=== PATIENT | female | born 1960 | race Caucasian/White ===

== ENCOUNTER 2019-03-02 06:40 | Emergency (ER) | payer OTHER ==
--- OUTSIDE RECORDS SUMMARY | 2019-03-02 06:43 | XMS REPORT ---
:1960 [facility] Address [address] [place] [address] Dr. Vera. [address] [place] [id number] Care Team Providers Name Role Phone Unavailable Unavailable Unavailable Problems This patient has no known problems. Allergies, Adverse Reactions, Alerts This patient has no known allergies or adverse reactions. Medications This patient has no known medications.
[2019-03-02] MEDS ORDERED: FENTANYL CITR 100 MCG/2 ML ONE (07:14)
[2019-03-02 07:37] LABS: Absolute Lymphocytes (CBC) 3.5 K/uL (0.7-4.9); Basophils % 0.4 % (0-1.3); Hematocrit 34.7 % (36.0-45.0); Lymphocytes % 30.9 % (15.3-44.8); MPV 8.6 fL (7.6-11.3); RBC Red Blood Cell Count 3.87 M/uL (3.86-4.86)
[2019-03-02 07:40] LABS: Protime INR 0.98
[2019-03-02 07:56] LABS: ALT/SGPT 50 U/L (12-78); AST/SGOT 55 U/L (15-37); Albumin 3.3 g/dL (3.4-5.0); Alkaline Phosphatase 222 U/L (45-117); BUN Blood Urea Nitrogen 22 mg/dL (7-18); Bicarbonate 24 mmol/L (21-32); Bilirubin Direct 0.2 mg/dL (0-0.2); Bilirubin Total 0.4 mg/dL (0.2-1.0); Glucose Level 102 mg/dL (74-106); Lipase 235 U/L (73-393); Magnesium 1.9 mg/dL (1.8-2.4); NT PRO-BNP 266 pg/mL (<125); Potassium 3.9 mmol/L (3.5-5.1); Protein, Total 7.3 g/dL (6.4-8.2); Sodium Level 141 mmol/L (136-145); Troponin (Emerg Dept Use Only) < 0.02 ng/mL (0.0-0.045)
[2019-03-02] MEDS ORDERED: NA CHLORIDE 0.9% 1,000 ML ONE (08:20)
--- NOTE | 2019-03-02 08:22 | RAD REPORT ---
EXAM DESCRIPTION: RAD - Chest Single View - 03/02/2019 7:23 am CLINICAL HISTORY: Chest pain, history of recent lithotripsy COMPARISON: February 23 TECHNIQUE: AP portable chest image was obtained 0718 hours . FINDINGS: Lungs are clear. Heart and vasculature are normal. No measurable pleural effusion and no p neumothorax. No acute bony abnormality seen. No acute aortic findings suspected. IMPRESSION: No acute cardiopulmonary process. No significant change from comparison.
--- NOTE | 2019-03-02 08:53 | RAD REPORT ---
EXAM DESCRIPTION: CT - Chest For Pe Angio - 03/02/2019 8:43 am CLINICAL HISTORY: CHEST PAIN COMPARISON: Chest Single View dated 03/02/2019 TECHNIQUE: Dynamically enhanced 3 mm thick images of the chest were obtained during administration o f approximately 150mL Isovue 370 IV contrast. Coronal and oblique MIP reconstruction images were gene rated and reviewed. Exam utilizes a protocol to evaluate the pulmonary arterial tree. All CT scans are performed using dose optimization technique as appropriate and may include automated exposure control or mA/KV adjustment according to patient size. FINDINGS: No pulmonary emboli are identified. The aorta as imaged shows no acute or suspicious finding. No pericardial thickening or effusion. Geovanna ent has a normal aortic arch variant a right subclavian artery arising from the aortic arch and passi ng posterior to the esophagus. No infiltrate or mass in the lung parenchyma. No pleural effusion or pleural thickening. No mediastinal or hilar suspicious masses. No chest wall masses or abnormal axillary lymphadenopathy. IMPRESSION: No pulmonary emboli identified. No other significant or suspicious findings.
--- NOTE | 2019-03-02 09:02 | RAD REPORT ---
EXAM DESCRIPTION: CT - Abdomen Pelvis W Contrast - 03/02/2019 8:42 am CLINICAL HISTORY: Abdominal pain;Chest pain, epigastric pain with February 28 right kidney stone lit hotripsy. Patient has prior cholecystectomy and hysterectomy COMPARISON: None. TECHNIQUE: Biphasic, helical CT imaging of the abdomen and pelvis was performed following 100 ml non -ionic IV contrast. Oral contrast was given. All CT scans are performed using dose optimization technique as appropriate and may include automated exposure control or mA/KV adjustment according to patient size. FINDINGS: No suspicious findings in the lung bases. The liver, spleen, and pancreas show no focal findings. Liver does show a subtle nodular capsule cont our. Gallbladder is absent. No abnormal biliary tree dilatation. Patient has [id number] right-sided hydronephrosis and hydroureter secondary to a 4 millimeter d istal ureteral stone. Stone is approximately 4 cm from the UVJ. There are several small stone fragmen ts in the lower pole of the right kidney. This is the site of lithotripsy of an approximately 7 x 7 m illimeter calculus. The hydronephrosis and obstructing calculus does not appear to cause any signific ant degree of asymmetry of function. There is no retroperitoneal hematoma. No pyelonephritis or acute parenchymal process. No bladder abnormalities. No adrenal abnormalities. No dilated bowel loops or bowel wall thickening. Moderate stool volume throughout the colon. No acute GI process identifiable. No free air, free fluid or inflammatory stranding. No mass or bulky lympha denopathy. A very minimal periumbilical fatty hernia present. No suspicious bony findings. Patient has prominent degenerative change in the lumbar spine. L4 pars defects are present with mild anterior subluxation of L4. Patient has advanced L4-5 disc and endplate degenerative change. Bilateral foraminal stenosis is present. Wedging of the T11 thoracic vertebrae noted. This is not suspected to be acute. IMPRESSION: The patient has mild to moderate right-sided hydronephrosis secondary to a 4 millimeter stone fragment in the distal ureter 3-4 cm from the UVJ. Additional stone fragments are present in the lower pole of the right kidney. There is no intraparenchymal or perinephric hematoma. The obstructing calculus does not currently cau se any significant degree asymmetry of function. The liver does show a subtle nodularity to the capsule. No focal liver lesions. The capsule findings nonspecific but can be seen in cirrhosis or diffuse hepatic parenchymal disease. This can be correlat ed with liver function studies as warranted.
--- NOTE | 2019-03-02 10:25 | ER ---
Nurse's Notes [facility] Name: Alison Casillas Age: 58 yrs Sex: Female : 1960 Arrival Date: 03/02/2019 Time: 06:41 Bed 6 Private MD: Diagnosis: Unspecified abdominal pain;Calculus of ureter Presentation: 03/02 06:42 Presenting complaint: EMS states: Patient had lithotripsy on 02/28 for 7mm stone to lp1 right kidney by Dr. Damico; States pain to different areas of body since, this morning, pain to epigastric area this morning with nausea radiating to back. Transition of care: patient was not received from another setting of care. Onset of symptoms was March 02, 2019. Risk Assessment: Do you want to hurt yourself or someone else? Patient reports no desire to harm self or others. Initial Sepsis Screen: Does the patient meet any 2 criteria? No. Patient's initial sepsis screen is negative. Does the patient have a suspected source of infection? No. Patient's initial sepsis screen is negative. Care prior to arrival: None. 06:42 Method Of Arrival: EMS: [facility] 1 06:42 Acuity: VINOD 3 lp1 Historical: - Allergies: 06:48 Cipro; lp1 06:48 tramadol; lp1 06:48 Zithromax; lp1 - Home Meds: 06:48 Pepcid 20 mg Oral tab 1 tab once daily [Active]; amlodipine-benazepril 5-10 mg oral cap lp1 1 cap once daily [Active]; Bystolic 5 mg oral tab once daily [Active]; acetaminophen-codeine 300-30 mg Oral tab 1 tab every 6 hours [Active]; tamsulosin 0.4 mg oral cp24 1 cap once daily [Active]; - PMHx: 06:48 acid reflux; Arthritis; Hypertension; Kidney stones; bleeding ulcers; lp1 - PSHx: 06:48 Cholecystectomy; Hysterectomy; ; Lithotripsy 02/28/19; lp1 - Immunization history:: Adult Immunizations up to date. - Social history:: Smoking status: Patient/guardian denies using tobacco. - Ebola Screening: : No symptoms or risks identified at this time. Screenin:48 Abuse screen: Denies threats or abuse. Denies injuries from another. Nutritional lp1 screening: No deficits noted. Tuberculosis screening: No symptoms or risk factors identified. 07:36 Fall Risk None identified. tw2 Assessment: 07:10 General: Appears in no apparent distress. Behavior is calm, cooperative, appropriate tw2 for age. Pain: Complains of pain in epigastric area. Neuro: Level of Consciousness is awake, alert, obeys commands, Oriented to person, place, time, situation. Cardiovascular: Heart tones S1 S2 Patient's skin is warm and dry. Respiratory: Airway is patent Respiratory effort is even, unlabored, Respiratory pattern is regular, symmetrical, Breath sounds are clear bilaterally. GI: Abdomen is flat, Bowel sounds present X 4 quads. Abd is soft X 4 quads. : Urine is liz blood, Reports blood in urine. EENT: No signs and/or symptoms were reported regarding the EENT system. Derm: No signs and/or symptoms reported regarding the dermatologic system. Musculoskeletal: Range of motion: intact in all extremities. 08:30 Reassessment: Patient appears in no apparent distress at this time. No changes from tw2 previously documented assessment. Patient and/or family updated on plan of care and expected duration. Pain level reassessed. Patient is alert, oriented x 3, equal unlabored respirations, skin warm/dry/pink. 09:40 Reassessment: Patient appears in no apparent distress at this time. No changes from tw2 previously documented assessment. Patient and/or family updated on plan of care and expected duration. Pain level reassessed. Patient is alert, oriented x 3, equal unlabored respirations, skin warm/dry/pink. 10:40 Reassessment: Patient appears in no apparent distress at this time. No changes from tw2 previously documented assessment. Patient and/or family updated on plan of care and expected duration. Pain level reassessed. Patient is alert, oriented x 3, equal unlabored respirations, skin warm/dry/pink. Patient states feeling better. Vital Signs: 06:45 BP 124 / 81; Pulse 70; Resp 18; Temp 97.7(O); Pulse Ox 98% on R/A; Weight 73.48 kg (R); lp1 Height 5 ft. 1 in. (154.94 cm); Pain 3/10; 07:33 BP 129 / 66; Pulse 56; Resp 15; Pulse Ox 99% ; sv 08:30 BP 129 / 68; Pulse 53; Resp 17; Pulse Ox 99% on R/A; tw2 09:29 BP 116 / 70; Pulse 60; Resp 20; Pulse Ox 96% ; sv 06:45 Body Mass Index 30.61 (73.48 kg, 154.94 cm) lp1 ED Course: 06:41 Patient arrived in ED. lp1 06:45 Triage completed. lp1 06:45 Arm band placed on. lp1 06:47 Gigi Coleman NP is PHCP. pm1 06:47 Mulugeta Wright MD is Attending Physician. pm1 06:48 Patient has correct armband on for positive identification. Bed in low position. Pulse lp1 ox on. NIBP on. 07:10 Erin Jacobs RN is Primary Nurse. tw2 07:24 XRAY Chest (1 view) In Process Unspecified. EDMS 07:34 Maintain EMS IV. Dressing intact. Good blood return noted. Site clean \T\ dry. Gauge \T\ tw 2 site: 20 g RIGHT wrist. 08:43 Abdomen In Process Unspecified. EDMS 08:43 CT Chest For PE Angio In Process Unspecified. EDMS 10:40 No provider procedures requiring assistance completed. IV discontinued, intact, tw2 bleeding controlled, No redness/swelling at site. Pressure dressing applied. Administered Medications: 07:17 Drug: fentaNYL (PF) 25 mcg {Note: RASS 0.} Route: IVP; Site: right wrist; tw2 08:12 Follow up: Response: No adverse reaction; Pain is decreased; RASS: Alert and Calm (0) tw2 08:20 Drug: NS 0.9% 1000 ml Route: IV; Rate: 1000 ml; Site: right hand; tw2 10:29 Follow up: Response: No adverse reaction; IV Status: Completed infusion; IV Intake: tw2 1000ml Intake: 10:29 IV: 1000ml; Total: 1000ml. tw2 Outcome: 10:25 Discharge ordered by . pm1 10:40 Discharged to home ambulatory, with family. tw2 10:40 Condition: stable 10:40 Discharge instructions given to patient, family, Instructed on discharge instructions, follow up and referral plans. medication usage, Demonstrated understanding of instructions, follow-up care, medications, Prescriptions given X 1. 10:41 Patient left the ED. tw2 Signatures: Dispatcher [employer] Edie Salmon, RN RN sv Suly Meza, RN RN lp1 Gigi Coleman, FREE LANCE ARTIST FREE LANCE ARTIST pm1 Erin Jacobs RN RN tw2
--- NOTE | 2019-03-02 10:26 | EDPHYS ---
Physician Documentation [facility] Name: Alison Casillas Age: 58 yrs Sex: Female : 1960 Arrival Date: 03/02/2019 Time: 06:41 Bed 6 Private MD: ED Physician Mulugeta Wright HPI: 03/02 07:00 This 58 yrs old Female presents to ER via EMS with complaints of Abdominal pm1 Pain. 07:00 The patient presents with abdominal pain in the epigastric area. Onset: The pm1 symptoms/episode began/occurred this morning, at 03:00. The symptoms radiate to the right shoulder. Associated signs and symptoms: Pertinent positives: nausea, Pertinent negatives: blood in stools, chest pain, constipation, fever, shortness of breath, vomiting blood. The symptoms are described as sharp. Modifying factors: The symptoms are alleviated by nothing, the symptoms are aggravated by nothing. Severity of pain: in the emergency department the pain has improved. The patient has been recently seen by a physician: with different complaint(s), Lithotripsy [address] Damico on a 7 cm right ureteral calculus. Patient concerned about epigastric pain because she when she came out of surgery two days ago with Dr. Damico she had palpitations and tachycardia. They did a cardiac work up and discharged her home to follow up with cardiology . She has had right lower quadrant pain from her kidney stone that is not new today. Has been passing some stones. . 07:00 Patient attributes her current pain likely to her history of peptic ulcers. pm1 Historical: - Allergies: 06:48 Cipro; lp1 06:48 tramadol; lp1 06:48 Zithromax; lp1 - Home Meds: 06:48 Pepcid 20 mg Oral tab 1 tab once daily [Active]; amlodipine-benazepril 5-10 mg oral cap lp1 1 cap once daily [Active]; Bystolic 5 mg oral tab once daily [Active]; acetaminophen-codeine 300-30 mg Oral tab 1 tab every 6 hours [Active]; tamsulosin 0.4 mg oral cp24 1 cap once daily [Active]; - PMHx: 06:48 acid reflux; Arthritis; Hypertension; Kidney stones; bleeding ulcers; lp1 - PSHx: 06:48 Cholecystectomy; Hysterectomy; ; Lithotripsy 11/19/19; lp1 - Immunization history:: Adult Immunizations up to date. - Social history:: Smoking status: Patient/guardian denies using tobacco. - Ebola Screening: : No symptoms or risks identified at this time. ROS: 07:00 Constitutional: Negative for fever, chills, and weight loss, Eyes: Negative for injury, pm1 pain, redness, and discharge, ENT: Negative for injury, pain, and discharge, Neck: Negative for injury, pain, and swelling, Cardiovascular: Negative for chest pain, palpitations, and edema, Respiratory: Negative for shortness of breath, cough, wheezing, and pleuritic chest pain. 07:00 Back: Negative for injury and pain, MS/Extremity: Negative for injury and deformity, Skin: Negative for injury, rash, and discoloration. 07:00 Neuro: Negative for headache, weakness, numbness, tingling, and seizure. 07:00 Abdomen/GI: Positive for abdominal pain, nausea, of the epigastric area and right lower quadrant, Negative for vomiting, diarrhea, constipation. 07:00 : Positive for hematuria, Negative for burning with urination. Exam: 07:00 Constitutional: This is a well developed, well nourished patient who is awake, alert, pm1 and in no acute distress. Head/Face: Normocephalic, atraumatic. Eyes: Pupils equal round and reactive to light, extra-ocular motions intact. Lids and lashes normal. Conjunctiva and sclera are non-icteric and not injected. Cornea within normal limits. Periorbital areas with no swelling, redness, or edema. ENT: Nares patent. No nasal discharge, no septal abnormalities noted. Tympanic membranes are normal and external auditory canals are clear. Oropharynx with no redness, swelling, or masses, exudates, or evidence of obstruction, uvula midline. Mucous membranes moist. Neck: Trachea midline, no thyromegaly or masses palpated, and no cervical lymphadenopathy. Supple, full range of motion without nuchal rigidity, or vertebral point tenderness. No Meningismus. Chest/axilla: Normal chest wall appearance and motion. Nontender with no deformity. No lesions are appreciated. Cardiovascular: Regular rate and rhythm with a normal S1 and S2. No gallops, murmurs, or rubs. Normal PMI, no JVD. No pulse deficits. Respiratory: Lungs have equal breath sounds bilaterally, clear to auscultation and percussion. No rales, rhonchi or wheezes noted. No increased work of breathing, no retractions or nasal flaring. 07:00 Skin: Warm, dry with normal turgor. Normal color with no rashes, no lesions, and no evidence of cellulitis. MS/ Extremity: Pulses equal, no cyanosis. Neurovascular intact. Full, normal range of motion. 07:00 Abdomen/GI: Inspection: abdomen appears normal, Bowel sounds: normal, Palpation: soft, mild abdominal tenderness, in the epigastric area, mass, is not appreciated, rebound tenderness, is not appreciated. 07:00 Back: pain, that is mild, of the lumbar area, vertebral tenderness, is not appreciated. 07:00 Neuro: Orientation: is normal, Motor: is normal, moves all fours, Sensation: is normal, no obvious gross deficits. Vital Signs: 06:45 BP 124 / 81; Pulse 70; Resp 18; Temp 97.7(O); Pulse Ox 98% on R/A; Weight 73.48 kg (R); lp1 Height 5 ft. 1 in. (154.94 cm); Pain 3/10; 07:33 BP 129 / 66; Pulse 56; Resp 15; Pulse Ox 99% ; sv 08:30 BP 129 / 68; Pulse 53; Resp 17; Pulse Ox 99% on R/A; tw2 09:29 BP 116 / 70; Pulse 60; Resp 20; Pulse Ox 96% ; sv 06:45 Body Mass Index 30.61 (73.48 kg, 154.94 cm) lp1 MDM: 06:47 Patient medically screened. pm1 08:31 Data reviewed: vital signs. Data interpreted: Pulse oximetry: on room air is 99 %. pm1 Interpretation: normal. 10:24 Counseling: I had a detailed discussion with the patient and/or guardian regarding: the pm1 historical points, exam findings, and any diagnostic results supporting the discharge/admit diagnosis, lab results, radiology results, the need for outpatient follow up, to return to the emergency department if symptoms worsen or persist or if there are any questions or concerns that arise at home. 03/02 06:49 Order name: Basic Metabolic Panel pm1 03/02 06:49 Order name: CBC with Diff; Complete Time: 08:01 pm1 03/02 06:49 Order name: LFT's; Complete Time: 08:01 pm1 03/02 06:49 Order name: Magnesium; Complete Time: 08:01 pm1 03/02 06:49 Order name: NT PRO-BNP pm1 03/02 06:49 Order name: PT-INR; Complete Time: 08:01 pm1 03/02 06:49 Order name: Troponin (emerg Dept Use Only); Complete Time: 08:01 pm1 03/02 06:49 Order name: XRAY Chest (1 view); Complete Time: 08:25 pm1 03/02 06:49 Order name: Lipase; Complete Time: 08:01 pm1 03/02 06:50 Order name: Basic Metabolic Panel; Complete Time: 08:01 EDMS 03/02 06:50 Order name: NT PRO-BNP; Complete Time: 08:01 EDMS 03/02 07:21 Order name: Creatinine for Radiology; Complete Time: 08:01 pm1 03/02 09:22 Order name: Troponin (emerg Dept Use Only); Complete Time: 10:24 pm1 03/02 06:49 Order name: EKG; Complete Time: 06:50 pm1 03/02 06:49 Order name: Cardiac monitoring; Complete Time: 07:11 pm1 03/02 06:49 Order name: EKG - Nurse/Tech; Complete Time: 07:11 pm1 03/02 06:49 Order name: IV Saline Lock; Complete Time: 07:34 pm1 03/02 06:49 Order name: Labs collected and sent; Complete Time: 07:34 pm1 03/02 06:49 Order name: O2 Per Protocol; Complete Time: 07:11 pm1 03/02 06:49 Order name: O2 Sat Monitoring; Complete Time: 07:11 pm1 03/02 08:11 Order name: CT Chest For PE Angio; Complete Time: 08:58 pm1 03/02 08:11 Order name: Abdomen ; Complete Time: 09:04 EDMS Administered Medications: 07:17 Drug: fentaNYL (PF) 25 mcg {Note: RASS 0.} Route: IVP; Site: right wrist; tw2 08:12 Follow up: Response: No adverse reaction; Pain is decreased; RASS: Alert and Calm (0) tw2 08:20 Drug: NS 0.9% 1000 ml Route: IV; Rate: 1000 ml; Site: right hand; tw2 10:29 Follow up: Response: No adverse reaction; IV Status: Completed infusion; IV Intake: tw2 1000ml Disposition: 03/02/19 10:25 Discharged to Home. Impression: Unspecified abdominal pain, Calculus of ureter. - Condition is Stable. - Discharge Instructions: Abdominal Pain, Adult, Kidney Stones, Nausea and Vomiting, Adult, Dietary Guidelines to Help Prevent Kidney Stones. - Prescriptions for Zofran ODT 4 mg Oral tablet,disintegrating - place 1 tablet by TRANSLINGUAL route every 8 hours As needed; 20 tablet. - Medication Reconciliation Form, Thank You Letter, Antibiotic Education, Prescription Opioid Use form. - Follow up: Emergency Department; When: As needed; Reason: Worsening of condition. Follow up: Private Physician; When: 2 - 3 days; Reason: Recheck today's complaints, Continuance of care, Re-evaluation by your physician. - Problem is new. - Symptoms have improved. Addendum: 03/03/2019 12:23 Co-signature as Attending Physician, Mulugeta Wright MD I agree with the assessment and t w4 plan of care. Signatures: Dispatcher [employer] [facility] Suly Meza RN RN lp1 Gigi Coleman, LETTY LEGAL ADVISER pm1 Erin Jacobs RN RN tw2 Mulugeta Wright MD MD tw4 Corrections: (The following items were deleted from the chart) 03/02 08:11 08:03 Chest Abdomen Pelvis W Con+CT.RAD.BRZ ordered. [facility] 10:41 10:25 03/02/2019 10:25 Discharged to Home. Impression: Unspecified abdominal pain; tw2 Calculus of ureter. Condition is Stable. Forms are Medication Reconciliation Form, Thank You Letter, Antibiotic Education, Prescription Opioid Use. Follow up: Emergency Department; When: As needed; Reason: Worsening of condition. Follow up: Private Physician; When: 2 - 3 days; Reason: Recheck today's complaints, Continuance of care, Re-evaluation by your physician. Problem is new. Symptoms have improved. pm1
[2019-03-02 10:46] VITALS: TEMP 97.7
[2019-03-02 10:50] VITALS: BP 116/70; O2SAT 96
--- NOTE | 2019-03-02 14:12 | EKG ---
Test Date: 2019-03-02 Test Time: 07:00:55 Cold Header Operator: LAUREN MEASUREMENT RESULTS: Intervals: Rate: 58 VA: 154 QRSD: 102 QT: 424 QTc: 416 [place]: P: 62 VA: 154 QRS: -53 T: 51 INTERPRETIVE STATEMENTS: Sinus bradycardia Left axis deviation Abnormal ECG Compared to ECG 06/15/2008 09:30:22 Left-axis deviation now present Sinus rhythm no longer present Electronically Signed On 03-02-19 14:11:43 CHEF by Ronn Hernandez
== END 2019-03-02 10:41 | disposition home or self-care (01) ==
LOC: ER 06:40
DX: N20.1 Calculus of ureter (principal); I10 Essential (primary) hypertension; Z88.1 Allergy status to other antibiotic agents; Z88.5 Allergy status to narcotic agent
CPT/HCPCS: 96361; 93005; 85025; 80048; 36415; 83735; 85610; 80076; 84484 ×2; 83690; 83880; 71275; 74177; 71045; 96374; 99284; Q9967; J3010; J7030

== ENCOUNTER 2020-07-21 18:07 | Emergency (ER) | payer OTHER ==
--- OUTSIDE RECORDS SUMMARY | 2020-07-21 18:09 | XMS REPORT | Continuity of Care Document ---
:1960 Author Organization [facility] t Address [address] [place] [address] Care Team Providers Name Role Phone Paulie CORTEZ Attending Clinician Problems This patient has no known problems. Allergies, Adverse Reactions, Alerts This patient has no known allergies or adverse reactions. Medications This patient has no known medications. Procedures This patient has no known procedures. Encounters Start End Encounter Admission Attending Care Care Encounter Source Date/Time Date/Time Type Type Clinicians Facility Department ID 2020-06-25 2020[facility]06-[id number] 00:00:00 00:00:00 [facility] [id number] [place] [id number] Professio [phone] nal [facility] [address] 2020-04-02 2020-04-02 [facility] [id number] 00:00:00 00:00:00 [facility] [id number] [place] [id number] Professio [phone] nal [facility] [address] 2019-12-08 2019-12-08 Marielena Apodaca [facility] [id number] 00:00:00 00:00:00 [facility] [id number] [place] [id number] Professio [phone] [place] [address] [address] 2019-06-12 2019-06-12 Marielena Apodaca [facility] [id number] 00:00:00 00:00:00 [facility] [id number] [place] [id number] Professio [phone] [place] [address] [address] 2019-06-08 2019-06-08 [facility] [id number] 00:00:00 00:00:00 [facility] [id number] [place] [id number] Professio [phone] [place] [address] [address] Results This patient has no known results.
[2020-07-21] MEDS ORDERED: ONDANSETRON 4 MG (ODT) TAB ONE (20:15)
[2020-07-21] MEDS ORDERED: BENZONATATE 100 MG CAP PO ONE (20:15)
[2020-07-21 21:15] LABS: SARS-COV-2 RT PCR POSITIVE (NEGATIVE)
--- NOTE | 2020-07-21 21:15 | RAD REPORT ---
EXAM DESCRIPTION: RAD - Chest Single View - 07/21/2020 8:46 pm CLINICAL HISTORY: COUGH Chest pain. COMPARISON: Abdomen 1 View (KUB) dated 03/06/2019; Chest Single View dated 03/02/2019; Chest Pa And Lat (2 Views) dated 02/23/2019; Abdomen 1 View (KUB) dated 02/23/2019 FINDINGS: Portable technique limits examination quality. The lungs are grossly clear. The heart is normal in size. No displaced fractures. IMPRESSION: No acute intrathoracic process suspected.
--- NOTE | 2020-07-21 21:28 | ER ---
Nurse's Notes [facility] Name: Alison Casillas Age: 59 yrs Sex: Female : 1960 Arrival Date: 07/21/2020 Time: 18:12 Bed 5 Private MD: Diagnosis: Coronavirus infection, unspecified Presentation: 07/21 18:20 Chief complaint: Patient states: "I want to get a COVID test." c/o cough, nausea. sv Coronavirus screen: Client denies travel out of the [place] in the last 14 days. Client presents with at least one sign or symptom that may indicate coronavirus-19. Standard/surgical mask placed on the client. Provider contacted for isolation considerations. Risk Assessment: Do you want to hurt yourself or someone else? Patient reports no desire to harm self or others. Onset of symptoms is unknown. 18:20 Method Of Arrival: Ambulatory sv 18:20 Acuity: VINOD 4 sv 18:21 Ebola Screen: No symptoms or risks identified at this time. Initial Sepsis Screen: Does sv the patient meet any 2 criteria? No. Patient's initial sepsis screen is negative. Does the patient have a suspected source of infection? No. Patient's initial sepsis screen is negative. Historical: - Allergies: 18:21 Cipro; sv 18:21 tramadol; sv 18:21 Zithromax; sv - PMHx: 18:21 acid reflux; Arthritis; bleeding ulcers; Hypertension; Kidney stones; sv - PSHx: 18:21 Cholecystectomy; Hysterectomy; ; Lithotripsy 02/28/19; sv - Immunization history:: Adult Immunizations up to date. - Social history:: Smoking status: Patient/guardian denies using. Screenin:00 Abuse screen: Denies threats or abuse. Denies injuries from another. Nutritional wh screening: No deficits noted. Tuberculosis screening: No symptoms or risk factors identified. Fall Risk None identified. Assessment: 19:40 General: Appears in no apparent distress. Behavior is calm, cooperative, appropriate wh for age. Pain: Denies pain. Neuro: Level of Consciousness is awake, alert, obeys commands, Oriented to person, place, time, situation, Appropriate for age. Cardiovascular: Capillary refill < 3 seconds. Respiratory: Reports cough that is Airway is patent Respiratory effort is even, unlabored, Respiratory pattern is regular, symmetrical. GI: Abdomen is flat, non-distended, Reports nausea. : No signs and/or symptoms were reported regarding the genitourinary system. EENT: No signs and/or symptoms were reported regarding the EENT system. Derm: Skin is intact, is healthy with good turgor, Skin is pink, warm \\T\\ dry. normal. Musculoskeletal: Circulation, motion, and sensation intact. 20:30 Reassessment: Patient appears in no apparent distress at this time. No changes from previously documented assessment. Patient and/or family updated on plan of care and expected duration. Pain level reassessed. Patient is alert, oriented x 3, equal unlabored respirations, skin warm/dry/pink. 21:30 Reassessment: Patient appears in no apparent distress at this time. Patient and/or family updated on plan of care and expected duration. Pain level reassessed. Patient is alert, oriented x 3, equal unlabored respirations, skin warm/dry/pink. Vital Signs: 18:21 BP 141 / 76; Pulse 85; Resp 16; Temp 98; Pulse Ox 98% ; sv 20:00 BP 155 / 78; Pulse 67; Resp 18; Pulse Ox 98% on R/A; wh 21:30 BP 145 / 74; Pulse 66; Resp 18; Pulse Ox 98% on R/A; ED Course: 18:12 Patient arrived in ED. ds1 18:20 Triage completed. sv 18:21 Arm band placed on. sv 19:31 Mikaela Goldstein, ÓSCAR is Primary Nurse. 19:31 Raz Rangel PA is PHCP. cp 19:31 Mateo Brand MD is Attending Physician. cp 20:00 Patient has correct armband on for positive identification. Bed in low position. Call light in reach. Side rails up X 1. Pulse ox on. NIBP on. 20:43 XRAY Chest (1 view) In Process Unspecified. EDMS 22:05 No provider procedures requiring assistance completed. Patient did not have IV access during this emergency room visit. Administered Medications: 19:59 Drug: Zofran (Ondansetron) 4 mg Route: PO; 22:06 Follow up: Response: No adverse reaction; Nausea is decreased 19:59 Drug: Tessalon Perle (benzonatate) 200 mg Route: PO; 22:05 Follow up: Response: No adverse reaction; Nausea is decreased Outcome: 21:27 Discharge ordered by . jim 22:05 Discharged to home ambulatory. 22:05 Condition: stable 22:05 Discharge instructions given to patient, Instructed on discharge instructions, follow up and referral plans. medication usage, POC Demonstrated understanding of instructions, follow-up care, medications, POC Prescriptions given X 2. 22:06 Patient left the ED. Signatures: Dispatcher [employer] EDEdie Irwin, ÓSCAR RN Yumiko De Souza ds1 Raz Rangel PA PA cp Habalo, Winsy, RN RN Corrections: (The following items were deleted from the chart) 18:23 18:21 Pulse 85bpm; Resp 16bpm; Pulse Ox 98%; Temp 98F; sv sv
--- NOTE | 2020-07-21 21:28 | EDPHYS ---
Physician Documentation [facility] Name: Alison Casillas Age: 59 yrs Sex: Female : 1960 Arrival Date: 07/21/2020 Time: 18:12 Bed 5 Private MD: ED Physician Mateo Brand HPI: 07/21 19:42 This 59 yrs old Female presents to ER via Ambulatory with complaints of cp Cough, Nausea. 19:42 The patient or guardian reports cough, that is intermittent, with no sputum. Onset: The cp symptoms/episode began/occurred 6 day(s) ago. Severity of symptoms: in the emergency department the symptoms are unchanged, despite home interventions. Associated signs and symptoms: Pertinent positives: nausea, Pertinent negatives: chest pain, fever, vomiting. 19:42 Patient reports tested positive for COVID-19 today. cp Historical: - Allergies: 18:21 Cipro; sv 18:21 tramadol; sv 18:21 Zithromax; sv - PMHx: 18:21 acid reflux; Arthritis; bleeding ulcers; Hypertension; Kidney stones; sv - PSHx: 18:21 Cholecystectomy; Hysterectomy; ; Lithotripsy 02/28/19; sv - Immunization history:: Adult Immunizations up to date. - Social history:: Smoking status: Patient/guardian denies using. ROS: 19:45 Constitutional: Negative for body aches, chills, fever, poor PO intake. cp 19:45 Eyes: Negative for injury, pain, redness, and discharge. cp 19:45 ENT: Negative for ear pain, sore throat, difficulty swallowing, difficulty handling secretions. 19:45 Cardiovascular: Negative for chest pain, edema, palpitations. 19:45 Respiratory: Positive for cough, with no reported sputum, Negative for shortness of breath, wheezing. 19:45 Abdomen/GI: Positive for nausea, Negative for abdominal pain, vomiting, diarrhea, constipation. Exam: 19:50 Constitutional: The patient appears in no acute distress, alert, awake, cp non-diaphoretic, non-toxic, well developed, well nourished. 19:50 Head/Face: Normocephalic, atraumatic. cp 19:50 Eyes: Periorbital structures: appear normal, Conjunctiva: normal, no exudate, no injection, Sclera: no appreciated abnormality, Lids and lashes: appear normal, bilaterally. 19:50 ENT: External ear(s): are unremarkable, Nose: is normal, Mouth: Lips: moist, Oral mucosa: moist, Posterior pharynx: Airway: no evidence of obstruction, patent. 19:50 Neck: ROM/movement: is normal, is supple, without pain, no range of motions limitations, no meningismus. 19:50 Chest/axilla: Inspection: normal, Palpation: is normal, no crepitus, no tenderness. 19:50 Cardiovascular: Rate: normal, Rhythm: regular. 19:50 Respiratory: the patient does not display signs of respiratory distress, Respirations: normal, no use of accessory muscles, no retractions, labored breathing, is not present, Breath sounds: are clear throughout, no decreased breath sounds, no stridor, no wheezing. 19:50 Abdomen/GI: Exam negative for discomfort, distension, guarding, Inspection: abdomen appears normal. Vital Signs: 18:21 BP 141 / 76; Pulse 85; Resp 16; Temp 98; Pulse Ox 98% ; sv 20:00 BP 155 / 78; Pulse 67; Resp 18; Pulse Ox 98% on R/A; wh 21:30 BP 145 / 74; Pulse 66; Resp 18; Pulse Ox 98% on R/A; wh MDM: 19:41 Patient medically screened. 21:15 Test interpretation: by ED physician or midlevel provider: chest xray negative for cp infiltrates. 21:25 Data reviewed: vital signs, nurses notes, lab test result(s), radiologic studies, plain cp films. 21:25 Counseling: I had a detailed discussion with the patient and/or guardian regarding: the cp historical points, exam findings, and any diagnostic results supporting the discharge/admit diagnosis, lab results, radiology results, to return to the emergency department if symptoms worsen or persist or if there are any questions or concerns that arise at home. Response to treatment: the patient's symptoms have markedly improved after treatment, and as a result, I will discharge patient. 07/21 19:32 Order name: COVID-19 : Document "Date of Symptom Onset" if Symptomatic. 07/21 19:32 Order name: Flu 07/21 19:43 Order name: XRAY Chest (1 view); Complete Time: 21:24 cp 07/21 21:15 Order name: COVID-19/FLU A+B; Complete Time: 21:24 EDMS Administered Medications: 19:59 Drug: Zofran (Ondansetron) 4 mg Route: PO; 22:06 Follow up: Response: No adverse reaction; Nausea is decreased 19:59 Drug: Tessalon Perle (benzonatate) 200 mg Route: PO; 22:05 Follow up: Response: No adverse reaction; Nausea is decreased Disposition: 07/22 06:09 Co-signature as Attending Physician, Mateo Brand MD. ma2 Disposition: 07/21/20 21:27 Discharged to Home. Impression: Coronavirus infection, unspecified. - Condition is Stable. - Discharge Instructions: COVID-19. - Prescriptions for Zofran 4 mg Oral Tablet - take 1 tablet by ORAL route every 12 hours As needed; 20 tablet. Tessalon Perles 100 mg Oral Capsule - take 2 capsule by ORAL route every 8 hours As needed; 20 capsule. - Medication Reconciliation Form, Thank You Letter, Antibiotic Education, Prescription Opioid Use form. - Follow up: Private Physician; When: 2 - 3 days; Reason: Worsening of condition. - Problem is new. - Symptoms have improved. Signatures: Dispatcher [employer] EDND Edie Scherer RN RN sv Page, Corey, PA PA cp Habalo, Winsy, RN RN Mateo Brand MD MD ma2 Corrections: (The following items were deleted from the chart) 07/21 20:11 19:33 Influenza Screen (A ordered. EDND EDMS 20:12 19:33 CORONAVIRUS ordered. EDND EDMS 22:06 21:27 07/21/2020 21:27 Discharged to Home. Impression: Coronavirus infection, wh unspecified. Condition is Stable. Forms are Medication Reconciliation Form, Thank You Letter, Antibiotic Education, Prescription Opioid Use. Follow up: Private Physician; When: 2 - 3 days; Reason: Worsening of condition. Problem is new. Symptoms have improved. cp
[2020-07-21 23:34] VITALS: TEMP 98; O2SAT 98
[2020-07-21 23:37] VITALS: BP 145/74
== END 2020-07-21 22:06 | disposition home or self-care (01) ==
LOC: ER 18:07
DX: U07.1 COVID-19 (principal); I10 Essential (primary) hypertension; Z88.1 Allergy status to other antibiotic agents; Z88.5 Allergy status to narcotic agent
CPT/HCPCS: 0240U; 71045; 99284

== ENCOUNTER 2020-07-26 22:48 | Inpatient (IN) | payer OTHER ==
--- OUTSIDE RECORDS SUMMARY | 2020-07-26 22:51 | XMS REPORT | Continuity of Care Document ---
:1960 Author Organization [facility] t Address [address] [place] [address] Care Team Providers Name Role Phone Paulie CORTEZ Attending Clinician Problems This patient has no known problems. Allergies, Adverse Reactions, Alerts This patient has no known allergies or adverse reactions. Medications This patient has no known medications. Procedures This patient has no known procedures. Encounters Start End Encounter Admission Attending Care Care Encounter Source Date/Time Date/Time Type Type Clinicians Facility Department ID 2020-07-24 2020-07-24 Telephone Paulie [facility] [id number] 00:00:00 00:00:00 [facility] [id number] [place] [id number] Professio [phone] nal [facility] Office Building One 2020-06-25 2020-06-25 [facility] [id number] 00:00:00 00:00:00 [facility] [id number] [place] [id number] Professio [phone] nal [facility] Office Building One 2020-04-02 2020-04-02 [facility] [id number] 00:00:00 00:00:00 [facility] [id number] [place] [id number] Professio [phone] [place] [address] [address] One 2019-12-08 2019-12-08 Marielena Apodaca [facility] [id number] 00:00:00 00:00:00 [facility] [id number] [place] [id number] Professio [phone] [place] [address] [address] 2019-06-12 2019-06-12 [facility] [id number] 00:00:00 00:00:00 [facility] [id number] [place] [id number] Professio [phone] [place] [address] [address] 2019-06-08 2019-06-08 [facility] [id number] 00:00:00 00:00:00 [facility] [id number] [place] [id number] Professio [phone] [place] [address] [address] One Results This patient has no known results.
[2020-07-27] MEDS ORDERED: ONDANSETRON 4 MG/2 ML VIAL ONE (01:35)
[2020-07-27] MEDS ORDERED: NA CHLORIDE 0.9% 1,000 ML ONE ×3 (01:35→18:34)
[2020-07-27] MEDS ORDERED: FAMOTIDINE 20 MG/2 ML VIAL IV ONE ×3 (01:35→19:32)
[2020-07-27 01:48] LABS: Basophils % 0.4 % (0-1.3); Lymphocytes % 35.1 % (15.3-44.8); MPV 9.3 fL (7.6-11.3); RBC Red Blood Cell Count 4.75 M/uL (3.86-4.86)
[2020-07-27 01:51] LABS: Albumin 3.3 g/dL (3.4-5.0); Bilirubin Direct 0.1 mg/dL (0-0.2); Bilirubin Total 0.4 mg/dL (0.2-1.0); Potassium 3.8 mmol/L (3.5-5.1); Protein, Total 7.7 g/dL (6.4-8.2)
[2020-07-27] MEDS ORDERED: LIDOCAINE 100 MG/5 ML SYRINGE IV ONE (02:02)
[2020-07-27 03:09] LABS: C-Reactive Protein 18.8 mg/L (<3.00); Ferritin 111.7 ng/mL (8-388)
--- NOTE | 2020-07-27 03:22 | EDPHYS ---
Physician Documentation [facility] Name: Alison Casillas Age: 59 yrs Sex: Female : 1960 Arrival Date: 07/26/2020 Time: 22:58 Bed 5 Private MD: ED Physician Jass Diaz HPI: 07/27 01:49 This 59 yrs old Female presents to ER via Wheelchair with complaints of mh7 Nausea - COVID +. 01:49 The patient presents to the emergency department with nausea, that is moderate, mh7 vomiting, that is intermittent, described as clear fluid, diarrhea, that is intermittent. Onset: The symptoms/episode began/occurred 1 week(s) ago. Possible causes: unknown. The symptoms are aggravated by nothing. The symptoms are alleviated by nothing. Associated signs and symptoms: Pertinent positives: diarrhea, nausea, vomiting, Pertinent negatives: abdominal pain, belching, constipation, dysuria, fever, flatulence, GI bleeding, hematuria, vaginal discharge. Severity of symptoms: At their worst the symptoms were moderate 3 day(s) ago, in the emergency department the symptoms are unchanged. The patient has been recently seen at the [facility], last week. Historical: - Allergies: 07/26 23:17 tramadol; lp1 23:17 Zithromax; lp1 23:17 Cipro; lp1 - Home Meds: 23:17 amlodipine-benazepril 5-10 mg Oral cap 1 cap once daily [Active]; Bystolic 5 mg Oral lp1 tab once daily [Active]; Protonix Oral [Active]; - PMHx: 23:17 acid reflux; Arthritis; bleeding ulcers; Hypertension; Kidney stones; lp1 - PSHx: 23:17 Hysterectomy; Cholecystectomy; lp1 - Immunization history:: Adult Immunizations up to date. - Social history:: Smoking status: Patient denies any tobacco usage or history of. ROS: 07/27 01:49 Constitutional: Negative for fever, chills, and weight loss, Eyes: Negative for injury, mh7 pain, redness, and discharge, ENT: Negative for injury, pain, and discharge, Neck: Negative for injury, pain, and swelling, Cardiovascular: Negative for chest pain, palpitations, and edema, Respiratory: Negative for shortness of breath, cough, wheezing, and pleuritic chest pain, Back: Negative for injury and pain, : Negative for injury, bleeding, discharge, and swelling, MS/Extremity: Negative for injury and deformity, Skin: Negative for injury, rash, and discoloration, Neuro: Negative for headache, weakness, numbness, tingling, and seizure, Psych: Negative for depression, anxiety, suicide ideation, homicidal ideation, and hallucinations, Allergy/Immunology: Negative for hives, rash, and allergies, Endocrine: Negative for neck swelling, polydipsia, polyuria, polyphagia, and marked weight changes, Hematologic/Lymphatic: Negative for swollen nodes, abnormal bleeding, and unusual bruising. Exam: 01:49 Constitutional: This is a well developed, well nourished patient who is awake, alert, mh7 and in no acute distress. Head/Face: Normocephalic, atraumatic. Eyes: Pupils equal round and reactive to light, extra-ocular motions intact. Lids and lashes normal. Conjunctiva and sclera are non-icteric and not injected. Cornea within normal limits. Periorbital areas with no swelling, redness, or edema. Neck: Trachea midline, no thyromegaly or masses palpated, and no cervical lymphadenopathy. Supple, full range of motion without nuchal rigidity, or vertebral point tenderness. No Meningismus. Chest/axilla: Normal chest wall appearance and motion. Nontender with no deformity. No lesions are appreciated. Cardiovascular: Regular rate and rhythm with a normal S1 and S2. No gallops, murmurs, or rubs. Normal PMI, no JVD. No pulse deficits. Respiratory: Lungs have equal breath sounds bilaterally, clear to auscultation and percussion. No rales, rhonchi or wheezes noted. No increased work of breathing, no retractions or nasal flaring. Abdomen/GI: Soft, non-tender, with normal bowel sounds. No distension or tympany. No guarding or rebound. No evidence of tenderness throughout. Back: No spinal tenderness. No costovertebral tenderness. Full range of motion. Skin: Warm, dry with normal turgor. Normal color with no rashes, no lesions, and no evidence of cellulitis. MS/ Extremity: Pulses equal, no cyanosis. Neurovascular intact. Full, normal range of motion. Neuro: Awake and alert, GCS 15, oriented to person, place, time, and situation. Cranial nerves II-XII grossly intact. Motor strength 5/5 in all extremities. Sensory grossly intact. Cerebellar exam normal. Normal gait. Psych: Awake, alert, with orientation to person, place and time. Behavior, mood, and affect are within normal limits. Vital Signs: 07/26 23:12 BP 119 / 93; Pulse 122; Resp 20; Temp 99.4(O); Pulse Ox 94% on R/A; Weight 72.57 kg lp1 (R); Height 5 ft. 1 in. (154.94 cm); Pain 7/10; 07/27 01:21 BP 132 / 88; Pulse 84; Resp 20; Pulse Ox 95% on R/A; rv 07/28 19:39 BP 132 / 88; Pulse 74; Resp 20; Pulse Ox 95% ; rr5 20:08 BP 139 / 75; Pulse 61; Resp 23; Pulse Ox 96% on 2 lpm NC; rr5 07/26 23:12 Body Mass Index 30.23 (72.57 kg, 154.94 cm) lp1 MDM: 07/27 03:19 Differential diagnosis: gastritis, pancreatitis, viral gastroenteritis, mh7 gastroenteritis. Data reviewed: vital signs, nurses notes, lab test result(s), CBC, electrolytes, urinalysis, EKG, radiologic studies, plain films. Data interpreted: Pulse oximetry: on 2L(s) per nasal canula, is 94 %. Interpretation: acceptable. Counseling: I had a detailed discussion with the patient and/or guardian regarding: the historical points, exam findings, and any diagnostic results supporting the discharge/admit diagnosis, lab results, radiology results, the need for further work-up and treatment in the hospital. Response to treatment: the patient's symptoms have mildly improved after treatment. 03:21 Patient medically screened. [facility] 07/27 01:00 Order name: Basic Metabolic Panel; Complete Time: 02:56 [facility] 07/27 01:00 Order name: CBC with Diff; Complete Time: 02:56 [facility] 07/27 01:00 Order name: Hepatic Function; Complete Time: 02:56 [facility] 07/27 01:00 Order name: Lipase; Complete Time: 02:56 [facility] 07/27 02:51 Order name: CRP; Complete Time: 03:23 07/27 02:51 Order name: Ferritin rv 07/28 06:47 Order name: CBC with Automated Diff [facility] 07/28 07:04 Order name: Blood Culture [facility] 07/28 07:08 Order name: Comprehensive Metabolic Panel [facility] 07/28 07:08 Order name: T4 Free [facility] 07/28 07:08 Order name: Magnesium [facility] 07/28 07:08 Order name: Thyroid Stimulating Hormone [facility] 07/28 09:15 Order name: C-Reactive Protein [facility] 07/28 09:22 Order name: D-Dimer [facility] 07/27 01:00 Order name: IV Saline Lock; Complete Time: 01:24 [facility] 07/27 01:00 Order name: Labs collected and sent; Complete Time: 01:24 [facility] 07/27 01:00 Order name: Chest Single View XRAY [facility] 07/28 10:41 Order name: CT EDMN Administered Medications: 01:22 Drug: NS 0.9% 1000 ml Route: IV; Rate: 1000 ml; Site: right antecubital; rr5 01:22 Drug: Zofran (Ondansetron) 4 mg Route: IVP; Site: right antecubital; rr5 01:24 Drug: Pepcid (famotidine) 20 mg Route: IVP; Site: right antecubital; rr5 03:25 Drug: SOLU-Medrol (methylPrednisoLONE) 125 mg Route: IVP; Site: right antecubital; rr5 03:27 Drug: Phenergan 12.5 mg Route: IVP; Site: right antecubital; rr5 Disposition: 07/27/20 03:21 Hospitalization ordered by Prince Krishan for Inpatient Admission. Preliminary diagnosis are Coronavirus infection, unspecified, Pneumonia, Hypoxia, Dehydration. - Bed requested for Telemetry/MedSurg (observation). - Status is Inpatient Admission. rr5 - Condition is Stable. - Problem is new. - Symptoms have improved. Signatures: Dispatcher [employer] EDMN Jayda Peterson RN RN kl Pena, Laura, RN RN lp1 Timo Dumas, G[employer] REPAIRER-C [employer] REPAIRER-Cla1 Anitra Garcia RN RN cg Roque, Raymond, RN RN rr5 Jass Diaz MD MD 7 Corrections: (The following items were deleted from the chart) 03:56 03:21 Hospitalization Ordered by Prince Krishan CORTEZ for Inpatient Admission. Preliminary cg diagnosis is Coronavirus infection, unspecified; Pneumonia; Hypoxia; Dehydration. Bed requested for Telemetry/MedSurg (Inpatient). Status is Inpatient Admission. Condition is Stable. Problem is new. Symptoms have improved. mh7 07/28 17:04 07/27 03:56 07/27/2020 03:21 Hospitalization Ordered by Prince Krishan CORTEZ for Inpatient kl Admission. Preliminary diagnosis is Coronavirus infection, unspecified; Pneumonia; Hypoxia; Dehydration. Bed requested for [facility] ER HOLD. Status is Inpatient Admission. Condition is Stable. Problem is new. Symptoms have improved. 07/28 20:08 17:04 07/27/2020 03:21 Hospitalization Ordered by Prince Krishan CORTEZ for Inpatient rr5 Admission. Preliminary diagnosis is Coronavirus infection, unspecified; Pneumonia; Hypoxia; Dehydration. Bed requested for Telemetry/MedSurg (observation). Status is Inpatient Admission. Condition is Stable. Problem is new. Symptoms have improved. kl
--- NOTE | 2020-07-27 03:22 | ER ---
Nurse's Notes [facility] Name: Alison Casillas Age: 59 yrs Sex: Female : 1960 Arrival Date: 07/26/2020 Time: 22:58 Bed 5 Private MD: Diagnosis: Coronavirus infection, unspecified;Pneumonia;Hypoxia;Dehydration Presentation: 07/26 23:12 Chief complaint: Patient states: COVID positive results on 07/21/20, reports vomiting lp1 and diarrhea that began 07/22/20; States gagging while attempting to eat; diarrhea resolved. Coronavirus screen: Client reports previous positive COVID test result. Date of collection: July 21, 2020. Ebola Screen: No symptoms or risks identified at this time. Initial Sepsis Screen: Does the patient meet any 2 criteria? HR > 90 bpm. Does the patient have a suspected source of infection? Yes: Other: COVID. Risk Assessment: Do you want to hurt yourself or someone else? Patient reports no desire to harm self or others. Onset of symptoms was July 26, 2020. 23:12 Method Of Arrival: Wheelchair lp1 23:12 Acuity: VINOD 3 lp1 23:18 Note Reports no relief with Phenergen suppository. lp1 Historical: - Allergies: 23:17 tramadol; lp1 23:17 Zithromax; lp1 23:17 Cipro; lp1 - Home Meds: 23:17 amlodipine-benazepril 5-10 mg Oral cap 1 cap once daily [Active]; Bystolic 5 mg Oral lp1 tab once daily [Active]; Protonix Oral [Active]; - PMHx: 23:17 acid reflux; Arthritis; bleeding ulcers; Hypertension; Kidney stones; lp1 - PSHx: 23:17 Hysterectomy; Cholecystectomy; lp1 - Immunization history:: Adult Immunizations up to date. - Social history:: Smoking status: Patient denies any tobacco usage or history of. Screenin/17 01:21 Abuse screen: Denies threats or abuse. Denies injuries from another. Nutritional rv screening: No deficits noted. Tuberculosis screening: No symptoms or risk factors identified. Fall Risk None identified. Assessment: 01:20 General: Appears ill, Behavior is calm, cooperative. Pain: Denies pain. Neuro: Level of rv Consciousness is awake, alert, obeys commands, Oriented to person, place, time, situation. Cardiovascular: Patient's skin is warm and dry. Respiratory: Airway is patent Respiratory effort is even, unlabored, Breath sounds are clear bilaterally. Derm: Skin is intact. 02:25 Reassessment: Patient appears in no apparent distress at this time. Patient is alert, rr5 oriented x 3, equal unlabored respirations, skin warm/dry/pink. awaiting for results. 03:20 Reassessment: Patient appears in no apparent distress at this time. Patient is alert, rr5 oriented x 3, equal unlabored respirations, skin warm/dry/pink. hospitalist at bedside examining the patient. complaints of nausea with order made and carried out. 07/28 20:07 Reassessment: Patient appears in no apparent distress at this time. Patient is alert, rr5 oriented x 3, equal unlabored respirations, skin warm/dry/pink. report given to irwin CANTRELL 4th floor, awake alert with O2 at 2 liters via nasal cannula. Vital Signs: 07/26 23:12 BP 119 / 93; Pulse 122; Resp 20; Temp 99.4(O); Pulse Ox 94% on R/A; Weight 72.57 kg lp1 (R); Height 5 ft. 1 in. (154.94 cm); Pain 7/10; 07/27 01:21 BP 132 / 88; Pulse 84; Resp 20; Pulse Ox 95% on R/A; rv 07/28 19:39 BP 132 / 88; Pulse 74; Resp 20; Pulse Ox 95% ; rr5 20:08 BP 139 / 75; Pulse 61; Resp 23; Pulse Ox 96% on 2 lpm NC; rr5 07/26 23:12 Body Mass Index 30.23 (72.57 kg, 154.94 cm) lp1 ED Course: 07/26 22:58 Patient arrived in ED. bp1 23:15 Triage completed. lp1 23:17 Arm band placed on right wrist. lp1 07/27 00:34 Jass Diaz MD is Attending Physician. 7 00:41 William Charles RN is Primary Nurse. rr5 01:16 Inserted saline lock: 20 gauge in right antecubital area, using aseptic technique. rv Blood collected. 01:16 Initial lab(s) drawn, by me, sent to lab. rv 01:21 Patient has correct armband on for positive identification. 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 Pulse rv ox on. NIBP on. 01:46 Chest Single View XRAY In Process Unspecified. EDMS 03:20 Prince Nickerson MD is Hospitalizing Provider. [facility] 06:23 No provider procedures requiring assistance completed. IV is patent, with fluids rv infusing freely, Patient admitted, IV remains in place. 09:02 Primary Nurse role handed off by William Charles RN 11:54 Carlos Amor, RN is Primary Nurse. bp 21:06 Primary Nurse role handed off by Carlos Amor, RN tt3 07/28 07:40 Wilver Brown RN is Primary Nurse. [facility] 19:15 Primary Nurse role handed off by Wilver Brown RN mw2 Administered Medications: 07/27 01:22 Drug: NS 0.9% 1000 ml Route: IV; Rate: 1000 ml; Site: right antecubital; rr5 01:22 Drug: Zofran (Ondansetron) 4 mg Route: IVP; Site: right antecubital; rr5 01:24 Drug: Pepcid (famotidine) 20 mg Route: IVP; Site: right antecubital; rr5 03:25 Drug: SOLU-Medrol (methylPrednisoLONE) 125 mg Route: IVP; Site: right antecubital; rr5 03:27 Drug: Phenergan 12.5 mg Route: IVP; Site: right antecubital; rr5 Outcome: 03:21 Decision to Hospitalize by Provider. [facility] 06:23 Admitted to ER Hold. Please see [facility] for further documentation. rv 06:23 Condition: stable 06:23 Instructed on the need for admit. 07/28 20:08 Patient left the ED. rr5 Signatures: Dispatcher [employer] EDMS Suly Meza RN RN lp1 Wilver Brown RN RN [id number] Carlos Amor, ÓSCAR CANTRELL bp Deya Mancilla mw2 Maida Man Ronaldo, RN RN rv William Charles, RN RN rr5 Debra Smith Maurice, MD MD [facility] Chente Vazquez tt3
[2020-07-27] MEDS ORDERED: PROMETHAZINE INJ 25 MG/ML AMP ONE ×2 (03:43→19:32)
[2020-07-27] MEDS ORDERED: METHYLPREDNISOLONE 125 MG INJ ONE (03:43)
--- NOTE | 2020-07-27 04:17 | P.HP ---
Certification for Inpatient Patient admitted to: Inpatient With expected LOS: >2 Midnights Patient will require the following post-hospital care: None Practitioner: I am a practitioner with admitting privileges, knowledge of patient current condition, hospital course, and medical plan of care. Services: Services provided to patient in accordance with Admission requirements found in Title 42 Section 412.3 of the Code of Federal Regulations Patient History Date of Service: 07/27/20 Primary Care Provider: Dr. Apodaca Reason for admission: COVID-19 pneumonia History of Present Illness: 59-year-old female with history of hypertension and GERD presents emergency department for shortness of breath. Patient reports testing positive for Morrow virus on 07/21/2020. Patient reports increasing shortness of breath since then in addition to nausea, vomiting, diarrhea. Patient reports the diarrhea has ceased but she still very nauseous and having trouble keeping anything down. Evaluation in the emergency department significant for elevated CRP 18.8 alk phos 321. Patient noted to desaturate to around 88% on room air while she is in the emergency department, also still nauseous after receiving Pepcid, Zofran, Phenergan. ED provider wishes to admit for further evaluation and management. Allergies ciprofloxacin [From Cipro] Allergy (Unverified 09/13/16 21:21) Unknown tramadol Allergy (Unverified 09/13/16 21:21) Unknown - Past Medical/Surgical History -: Hypertension -: GERD -: -: Hysterectomy -: Cholecystectomy -: Lithotripsy -: Jaw surgery Psychosocial/ Personal History: Patient is unemployed, lives with her - Family History Father -: Other (see notes) (Dementia) - Social History Smoking Status: Never smoker Alcohol use: No CD- Drugs: No Caffeine use: Yes Place of Residence: Home Review of Systems General: Fever, Chills, Weakness, Malaise Respiratory: Cough, Shortness of Breath Gastrointestinal: Nausea, Vomiting, Abdominal Pain, Diarrhea Physical Examination - Physical Exam General: Alert, In no apparent distress HEENT: Atraumatic, PERRLA, Other (Mucous membranes dry) Neck: Supple, 2+ carotid pulse no bruit, No LAD Respiratory: Normal air movement, Diminished (Bilaterally) Cardiovascular: Regular rate/rhythm, Normal S1 S2 Gastrointestinal: Normal bowel sounds, No tenderness Musculoskeletal: No tenderness Integumentary: No rashes Neurological: Normal speech, Normal strength at 5/5 x4 extr, Normal tone, Normal affect - Studies Laboratory Data (last 24 hrs) 07/27/20 01:16: WBC 5.80, Hgb 13.4, Hct 41.0, Plt Count 213 07/27/20 01:16: Sodium 140, Potassium 3.8, BUN 16, Creatinine 0.88, Glucose 101, Total Bilirubin 0.4, AST 64 H, ALT 40, Alkaline Phosphatase 321 H, Lipase 99 Assessment and Plan - Plan Assessment Acute hypoxic respiratory failure secondary to COVID-19 pneumonia Nausea, vomiting secondary to viral syndrome Hypertension, GERD Plan Acute hypoxic respiratory failure secondary to COVID-19 pneumonia: Continue with IV steroids, oral supplements. Will hold off on ivermectin at this time as patient is still having significant nausea and vomiting. Daily CRP/ferritin levels, daily room air saturation, supplemental oxygen as needed titrate saturations greater than 93%. Pulmonology consulted. Anticipate patient can go home with home oxygen in the next 24-48 hr. Nausea, vomiting secondary to viral syndrome: Continue with full liquid diet, advance as tolerated. Continue with p.r.n. Zofran/Phenergan, b.i.d. Pepcid IV. Continue IV fluids for now until patient fluid status has improved. Hypertension, GERD: Continue home medications. Discharge Plan: Home Plan to discharge in: 48 Hours - Advance Directives Does patient have a Living Will: No Does patient have a Durable POA for Healthcare: No - Code Status/Comfort Care Code Status Assessed: Yes (Full code) Critical Care: No Time Spent Managing Pts Care (In Minutes): 55
[2020-07-27] MEDS: NA CHLORIDE 0.9% 1,000 ML IV SCH ×2 (04:58→14:58)
[2020-07-27 05:32] VITALS: BMI 27.4
[2020-07-27] MEDS: FAMOTIDINE 20 MG/2 ML VIAL IV SCH ×2 (09:00→20:00)
[2020-07-27] MEDS: ENOXAPARIN 40 MG/0.4 ML SQ SCH (09:00)
[2020-07-27] MEDS ORDERED: ENOXAPARIN 40 MG/0.4 ML SQ ONE (09:34)
[2020-07-27] MEDS: PROMETHAZINE INJ 25 MG/ML AMP IV PRN (19:30)
--- NOTE | 2020-07-27 21:38 | RAD REPORT ---
EXAM DESCRIPTION: RAD - Chest Single View - 07/27/2020 1:37 am CLINICAL HISTORY: COUGH COMPARISON: None. FINDINGS: Single frontal radiograph view of the chest. Cardiomediastinal silhouette: Atherosclerotic calcification of the thoracic aorta. Heart is not enlar ged. Lungs: Linear right basilar opacities. Bilateral interstitial opacities. No pneumothorax. Bones: Degenerative change of the spine and shoulders. Upper abdomen: No abnormality identified. IMPRESSION: 1. Patchy bilateral opacities. These findings could be seen with bilateral pneumonic pro cess. Electronically signed by: Joseph Petersen 07/27/2020 1:45 AM CDT Due to temporary technical issues with the PACS/Fluency reporting system, reports are being signed by the in house radiologists without review as a courtesy to insure prompt reporting. The interpreting radiologist is fully responsible for the content of the report.
[2020-07-28] MEDS: NA CHLORIDE 0.9% 1,000 ML IV SCH (00:40)
[2020-07-28 06:35] LABS: Absolute Lymphocytes (CBC) 2.4 K/uL (0.7-4.9); Hematocrit 36.3 % (36.0-45.0); MPV 9.3 fL (7.6-11.3); RBC Red Blood Cell Count 4.22 M/uL (3.86-4.86)
[2020-07-28 07:08] LABS: Albumin 2.8 g/dL (3.4-5.0); Bilirubin Total 0.3 mg/dL (0.2-1.0); Magnesium 2.1 mg/dL (1.8-2.4); Potassium 3.5 mmol/L (3.5-5.1); Protein, Total 6.5 g/dL (6.4-8.2); Thyroid Stimulating Hormone 1.8 uIU/mL (0.360-3.740)
[2020-07-28] MEDS: PROMETHAZINE INJ 25 MG/ML AMP IV PRN (08:40)
[2020-07-28] MEDS ORDERED: dexAMETHasone 10 MG/ML VIAL ONE (08:48)
[2020-07-28] MEDS ORDERED: PROMETHAZINE INJ 25 MG/ML AMP ONE (08:48)
[2020-07-28] MEDS ORDERED: ENOXAPARIN 40 MG/0.4 ML SQ ONE (08:48)
[2020-07-28] MEDS ORDERED: FAMOTIDINE 20 MG/2 ML VIAL IV ONE (08:49)
[2020-07-28] MEDS: FAMOTIDINE 20 MG/2 ML VIAL IV SCH ×2 (09:00→21:21)
[2020-07-28] MEDS: dexAMETHasone 10 MG/ML VIAL IV SCH (09:00)
[2020-07-28] MEDS: ENOXAPARIN 40 MG/0.4 ML SQ SCH (09:00)
--- NOTE | 2020-07-28 10:41 | RAD REPORT ---
EXAM DESCRIPTION: CT - Chest For Pe Angio - 07/28/2020 10:08 am CLINICAL HISTORY: Chest pain COMPARISON: 2019 TECHNIQUE: Dynamically enhanced axial 3 mm thick images of the chest were obtained during administra tion of <100> mL Isovue 370 IV contrast. Coronal and oblique reconstruction images were generated and reviewed. Exam utilizes a protocol for optimal evaluation of pulmonary arterial tree. Maximum intensity projections 3D imaging was utilized All CT scans are performed using dose optimization technique as appropriate and may include automated exposure control or mA/KV adjustment according to patient size. FINDINGS: A pulmonary embolus is not seen. A thoracic aortic aneurysm is not noted. A pleural effusion is not seen. A pericardial effusion is not seen. Mild bilateral ground-glass opacities. Small hiatal hernia. Aberrant right subclavian artery IMPRESSION: Negative for a pulmonary embolism. Mild bilateral ground-glass opacities may Covid pneumonia
[2020-07-28] MEDS: ZINC SULFATE 220 MG CAP PO SCH (14:57)
[2020-07-28] MEDS: THIAMINE HCL 100 MG TABLET PO SCH (14:57)
[2020-07-28] MEDS: ASCORBIC ACID 500 MG TABLET PO SCH (14:57)
--- NOTE | 2020-07-28 14:59 | P.PN ---
Subjective Date of Service: 07/28/20 Primary Care Provider: Dr. Apodaca Chief Complaint: COVID-19 pneumonia Subjective: No new changes (Patient states she is lethargic and does not feel comfortable going home. PT unavailable today to assess for deconditioning.) Physical Examination - Vital Signs Temperature: 98.3 F Blood Pressure: 134/73 Pulse: 89 Respirations: 15 Pulse Ox (%): 96 - Physical Exam General: Cooperative, Other (Lethargic) HEENT: Atraumatic, Normocephalic Neck: Supple Respiratory: Diminished Cardiovascular: No edema, Regular rate/rhythm, Normal S1 S2 Gastrointestinal: Soft and benign, Non-distended, No tenderness Musculoskeletal: No clubbing, No swelling, No contractures, No erythema, No tenderness Neurological: Normal speech, Normal affect Assessment & Plan Physician Review Additional Text: Assessment This is a 59-year-old previously function female with a past medical history of hypertension and GERD who is currently admitted with acute hypoxemic respiratory failure secondary to COVID 19. She was diagnosed with the culprit 19 on July 21. The symptoms were mainly GI manifestations and have been progressively worsening since then. Since her admission here, her respiratory status has improved. She is requiring minimal oxygen. Home O2 has been delivered at bedside. She is, however, very lethargic and cannot take care of herself at home. Acute hypoxemic respiratory failure COVID 19 PNA Physical deconditioning Hypertension GERD Plan: Will keep patient for 1 more day Continue supplemental oxygen via nasal cannula Continue dexamethasone Continue vitamins B 1, C, D and zinc DVT prophylaxis with Lovenox, and GI prophylaxis famotidine Resume home regimen of nebivolol and PPI Patient will need to work with physical therapy prior to discharge
[2020-07-28] MEDS: PANTOPRAZOLE 40MG TABLET PO SCH (15:00)
[2020-07-28] MEDS ORDERED: ZINC SULFATE 220 MG CAP ONE (15:29)
[2020-07-28] MEDS ORDERED: NA CHLORIDE 0.9% 1,000 ML ONE (15:30)
[2020-07-28] MEDS ORDERED: ASCORBIC ACID 500 MG TABLET ONE (15:30)
[2020-07-28] MEDS ORDERED: THIAMINE HCL 100 MG TABLET ONE (15:30)
[2020-07-28] MEDS ORDERED: PANTOPRAZOLE 40 MG INJ ONE (15:30)
[2020-07-28] MEDS ORDERED: VITAMIN D 400 UNIT TAB PO SCH (16:00)
[2020-07-28] MEDS: ONDANSETRON 4 MG/2 ML VIAL IV PRN (21:34)
[2020-07-29] MEDS: ONDANSETRON 4 MG/2 ML VIAL IV PRN ×2 (03:43→09:31)
[2020-07-29 04:04] LABS: Hematocrit 34.5 % (36.0-45.0); Lymphocytes % 16.8 % (15.3-44.8); MPV 9.2 fL (7.6-11.3); RBC Red Blood Cell Count 4.02 M/uL (3.86-4.86)
[2020-07-29 04:20] LABS: ALT/SGPT 27 U/L (12-78); AST/SGOT 31 U/L (15-37); Albumin 2.5 g/dL (3.4-5.0); Alkaline Phosphatase 213 U/L (45-117); BUN Blood Urea Nitrogen 14 mg/dL (7-18); Bicarbonate 25 mmol/L (21-32); Bilirubin Total 0.3 mg/dL (0.2-1.0); Glucose Level 109 mg/dL (74-106); Magnesium 2.1 mg/dL (1.8-2.4); Potassium 4.1 mmol/L (3.5-5.1); Protein, Total 6.1 g/dL (6.4-8.2); Sodium Level 142 mmol/L (136-145)
[2020-07-29] MEDS: NA CHLORIDE 0.9% 1,000 ML IV SCH ×2 (05:42→06:58)
[2020-07-29] MEDS: dexAMETHasone 10 MG/ML VIAL IV SCH (09:00)
[2020-07-29] MEDS ORDERED: NEBIVOLOL HCL 5 MG TAB PO SCH (09:00)
[2020-07-29] MEDS: PANTOPRAZOLE 40MG TABLET PO SCH (09:08)
[2020-07-29] MEDS: ENOXAPARIN 40 MG/0.4 ML SQ SCH (09:09)
[2020-07-29] MEDS: ZINC SULFATE 220 MG CAP PO SCH (09:09)
[2020-07-29] MEDS: THIAMINE HCL 100 MG TABLET PO SCH (09:09)
[2020-07-29] MEDS: ASCORBIC ACID 500 MG TABLET PO SCH (09:09)
[2020-07-29 11:47] VITALS: BP 133/64; TEMP 98.1
[2020-07-29] MEDS ORDERED: IVERMECTIN 3 MG TABLET PO ONE (12:20)
--- NOTE | 2020-07-29 12:21 | P.CNS ---
Date of Consult: 07/29/20 Primary Care Provider: Dr. Apodaca Chief Complaint: COVID-19 pneumonia History of Present Illness: patient is 59 years of age with a history of hypertension 3rd presented to the emergency room with worsening nausea vomiting diarrhea as found to have thomas virus pneumonia patient's condition is currently stable oxygenation satisfactory are 2 L of nasal cannula oxygen Allergies ciprofloxacin [From Cipro] Allergy (Verified 07/27/20 07:52) Unknown tramadol Allergy (Verified 07/27/20 07:52) Unknown Home Medications: Amlodipine Besylate/Benazepril [Amlodipine-Benazepril 5-10 mg] 1 each PO DAILY 07/28/20 Nebivolol HCl [Bystolic*] 5 mg PO DAILY 07/28/20 Pantoprazole Sodium [Protonix] 40 mg PO DAILY 07/28/20 Albuterol Inhaler [Ventolin Inhaler*] 2 puff IH Q6H PRN #1 hfa.aer.ad 07/29/20 Apixaban [Eliquis] 5 mg PO BID #30 tablet 07/29/20 Ascorbic Acid [Vitamin C*] 500 mg PO DAILY #30 tablet 07/29/20 Benzonatate [Tessalon Perle] 200 mg PO TID PRN #30 cap 07/29/20 Cholecalciferol (Vitamin D3) [Vitamin D 400 IU TAB*] 400 unit PO DAILY #30 tab 07/29/20 Promethazine Tab [Phenergan] 25 mg PO Q6HP PRN #30 tab 07/29/20 Thiamine HCl [Vitamin B-1*] 100 mg PO DAILY #30 tablet 07/29/20 Zinc Sulfate [Zinc Sulfate*] 220 mg PO DAILY #30 cap 07/29/20 predniSONE [Deltasone] 20 mg PO BID #20 tab 07/29/20 - Past Medical/Surgical History -: Hypertension -: GERD -: -: Hysterectomy -: Cholecystectomy -: Lithotripsy -: Jaw surgery Psychosocial/ Personal History: Patient is unemployed, lives with her - Family History Father Medical History: Other (see notes) - Social History Alcohol use: No CD- Drugs: No Caffeine use: Yes Place of Residence: Home Review of Systems General: Weakness Respiratory: Shortness of Breath Physical Examination Temp Pulse Resp BP Pulse Ox 98.1 F 63 16 133/64 98 07/29/20 11:46 07/29/20 11:46 07/29/20 11:46 07/29/20 11:46 07/29/20 11:46 General: Alert Neck: Supple Respiratory: Clear to auscultation bilaterally, Diminished - Problems (1) Pneumonia due to coronavirus disease 2019 Current Visit: Yes Status: Acute Plan: patient is 59 years of age admitted with thomas virus pneumonia she is currently doing better plan for discharge labs reviewed vital signs satisfactory continue with steroids at home minimal ground-glass changes on the CT scan 1 dose of ivermectin can discharge home on prednisone 20 b.i.d. for a week then 10 b.i.d. follow with me in a week
[2020-07-29 14:53] VITALS: O2SAT 98
--- NOTE | 2020-08-19 02:02 | P.DS ---
Discharge Date: 07/29/20 Primary Care Provider: Dr. Apodaca Disposition: ROUTINE DISCHARGE Discharge Condition: GOOD Reason for Admission: COVID-19 pneumonia Consultations: Pulmonary Brief History of Present Illness: Patient is a 59-year-old female with history of hypertension and GERD presents emergency department for shortness of breath. Patient reports testing positive for Morrow virus on 07/21/2020. Patient reports increasing shortness of breath since then in addition to nausea, vomiting, diarrhea. Patient reports the diarrhea has ceased but she still very nauseous and having trouble keeping anything down. Evaluation in the emergency department significant for elevated CRP 18.8 alk phos 321. Patient noted to desaturate to around 88% on room air while she is in the emergency department, also still nauseous after receiving Pepcid, Zofran, Phenergan. ED provider wishes to admit for further evaluation and management. Hospital Course: Patient has done well during hospitalization. Patient clinical symptoms are much better. At this time, patient is stable for discharge. However, will need to continue with anti coagulation, inhaler therapy, cough suppressing, and antibiotic therapy as needed for worsening fever and congestion. Patient has done well during hospitalization and should do fine at discharge. Patient will need close outpatient follow with PCP in 1-2 weeks. Vital Signs/Physical Exam: Temp Pulse Resp BP Pulse Ox 98.1 F 63 16 133/64 98 07/29/20 11:46 07/29/20 11:46 07/29/20 11:46 07/29/20 11:46 07/29/20 11:46 General: Alert, In no apparent distress, Oriented x3 Laboratory Data at Discharge: WBC 11.70 K/uL (4.3-10.9) H 07/29/20 03:06 Hgb 11.5 g/dL (12.0-15.0) L 07/29/20 03:06 Hct 34.5 % (36.0-45.0) L 07/29/20 03:06 Plt Count 206 K/uL (152-406) 07/29/20 03:06 Sodium 142 mmol/L (136-145) 07/29/20 03:06 Potassium 4.1 mmol/L (3.5-5.1) 07/29/20 03:06 BUN 14 mg/dL (7-18) 07/29/20 03:06 Creatinine 0.55 mg/dL (0.55-1.3) 07/29/20 03:06 Glucose 109 mg/dL (74-106) H 07/29/20 03:06 Magnesium 2.1 mg/dL (1.8-2.4) 07/29/20 03:06 Total Bilirubin 0.3 mg/dL (0.2-1.0) 07/29/20 03:06 AST 31 U/L (15-37) 07/29/20 03:06 ALT 27 U/L (12-78) 07/29/20 03:06 Alkaline Phosphatase 213 U/L (45-117) H 07/29/20 03:06 Lipase 99 U/L (73-393) 07/27/20 01:16 Home Medications: Amlodipine Besylate/Benazepril [Amlodipine-Benazepril 5-10 mg] 1 each PO DAILY 07/28/20 Nebivolol HCl [Bystolic*] 5 mg PO DAILY 07/28/20 Pantoprazole Sodium [Protonix] 40 mg PO DAILY 07/28/20 Albuterol Inhaler [Ventolin Inhaler*] 2 puff IH Q6H PRN #1 hfa.aer.ad 07/29/20 Apixaban [Eliquis] 5 mg PO BID #30 tablet 07/29/20 Ascorbic Acid [Vitamin C*] 500 mg PO DAILY #30 tablet 07/29/20 Benzonatate [Tessalon Perle] 200 mg PO TID PRN #30 cap 07/29/20 Cholecalciferol (Vitamin D3) [Vitamin D 400 IU TAB*] 400 unit PO DAILY #30 tab 07/29/20 Promethazine Tab [Phenergan] 25 mg PO Q6HP PRN #30 tab 07/29/20 Thiamine HCl [Vitamin B-1*] 100 mg PO DAILY #30 tablet 07/29/20 Zinc Sulfate [Zinc Sulfate*] 220 mg PO DAILY #30 cap 07/29/20 predniSONE [Deltasone] 20 mg PO BID #20 tab 07/29/20 New Medications: Apixaban [Eliquis] 5 mg PO BID #30 tablet Promethazine Tab [Phenergan] 25 mg PO Q6HP PRN #30 tab PRN Reason: nausea and vomiting predniSONE [Deltasone] 20 mg PO BID #20 tab Benzonatate [Tessalon Perle] 200 mg PO TID PRN #30 cap PRN Reason: Cough Albuterol Inhaler [Ventolin Inhaler*] 2 puff IH Q6H PRN #1 hfa.aer.ad PRN Reason: Shortness Of Breath Thiamine HCl [Vitamin B-1*] 100 mg PO DAILY #30 tablet Ascorbic Acid [Vitamin C*] 500 mg PO DAILY #30 tablet Cholecalciferol (Vitamin D3) [Vitamin D 400 IU TAB*] 400 unit PO DAILY #30 tab Zinc Sulfate [Zinc Sulfate*] 220 mg PO DAILY #30 cap Physician Discharge Instructions: OK TO DC IV AND DC HOME FOLLOW-UP WITH PRIMARY CARE PROVIDER IN 1-2 WEEKS FOLLOW-UP WITH PULMONARY IN 1-2 WEEKS RETURN TO THE ER IF SYMPTOMS WORSEN CALL or TEXT DR. JOAQUIN AT [phone] IF ANY QUESTIONS REGARDING HOSPITAL STAY. PLEASE CALL THE FLOOR AT [phone] IF ANY MEDICATION OR NURSING QUESTIONS. Diet: AHA Activity: Fall precautions Followup: Roque Bang MD [ACTIVE - CAN ADMIT] - 1-2 Weeks (splitter machine- call to schedule an appointment ) SILVANA SUN [Primary Care Provider] - 1-2 Weeks (PCP- call to schedule an appointment ) Time spent managing pt's care (in minutes): 35
== END 2020-07-29 13:35 | disposition home or self-care (01) | DRG 177 ==
LOC: ER 22:48 → ERHOLD 07-27 03:46 → 4TH 07-28 19:23
PROVIDERS: ADMIT Internal Medicine; ATTEND Hospitalist
DX: U07.1 COVID-19 (principal); J12.82 Pneumonia due to coronavirus disease 2019; J96.01 Acute respiratory failure with hypoxia; I10 Essential (primary) hypertension; K21.9 Gastro-esophageal reflux disease without esophagitis; Z88.5 Allergy status to narcotic agent; Z88.1 Allergy status to other antibiotic agents; Z79.899 Other long term (current) drug therapy; Z90.49 Acquired absence of other specified parts of digestive tract; Z90.710 Acquired absence of both cervix and uterus; Z56.0 Unemployment, unspecified; Z79.01 Long term (current) use of anticoagulants; Z79.52 Long term (current) use of systemic steroids
CPT/HCPCS: 36415; 71045; 71275; 80048; 80053; 80076; 82728; 83690; 83735; 84439; 84443; 85025; 85379; 86140; 87040; 96374; 96375; 99285; C9113; J1100; J1650; J2405; J2550; J2930; J7030; Q9967